=== PATIENT | female | born 1955 | race Caucasian/White ===

== ENCOUNTER 2018-04-17 09:23 | Emergency (ER) | payer BC, OTHER ==
[~2018-04-17] VITALS: Ht 165.1 cm; Wt 81.6 kg
[~2018-04-17 09:23] MED LIST: AMBIEN10 MG PO; AMLODIPINE; LEVOTHYROXINE; LIPITOR20 MG PO; LISINOPRIL; LISINOPRIL-HCT1 EAC3 PO; METOPROLOL; POTASSIUM CHLO20 ME1 PO; PROTONIX IV40 M1 PO; PROTONIX PO; SYNTHROID PO; SYNTHROID200 MCG PO; SYNTHROID25 MCG PO; Z.0.AMBIEN10 MG PO; Z.0.KLOR-CON M2020 M PO; Z.0.METOPROLOL SUCC5 PO; Z.0.NORCO 10-325 T1 PO; Z.0.NORVASC10 MG PO; Z.1.LEVOTHYROXINE100 PO; [UNRECOGNIZED DRUG - OTHER]
[2018-04-17] MEDS ORDERED: KETOROLAC TROMETHAMINE 30 MG/ML VIAL ONE (09:47)
[2018-04-17 09:58] VITALS: BP 142/70
[2018-04-17] MEDS ORDERED: KETOROLAC TROMETHAMINE 60 MG/2 ML VIAL IM ONE (10:30)
== END 2018-04-17 10:01 | disposition home or self-care (01) ==
LOC: ER 09:23
DX: M25.561 Pain in right knee (principal); M25.572 Pain in left ankle and joints of left foot; G89.29 Other chronic pain; I10 Essential (primary) hypertension; E03.9 Hypothyroidism, unspecified; K21.9 Gastro-esophageal reflux disease without esophagitis
CPT/HCPCS: 99282; J1885

== ENCOUNTER 2018-12-26 08:11 | Emergency (ER) | payer OTHER ==
[~2018-12-26] VITALS: Ht 165.1 cm; Wt 81.6 kg
--- OUTSIDE RECORDS SUMMARY | 2018-12-26 08:14 | XMS REPORT | Continuity of Care Document ---
Author Author [facility] Interface Address Unknown Phone Unavailable Problems Problem Status Onset Date Classification Date Reported Comments Source Medications Medication Details Route Status Patient Instructions Ordering Provider Order Date Source Est Estrogenmtest , Active 10/30/2014 [facility] Levothyroxine Sodium (Synthroid) 25 Mcg Tablet, 250 Mcg Oral Daily Active 10/30/2014 [facility] Atorvastatin Calcium (Lipitor) 20 Mg Tablet, 20 Mg Oral Daily Active 10/27/2014 [facility] Hydrocodone Bit/Acetaminophen ([place] 10-325 Tablet) 1 Each Tablet, 10-325 Mg Oral As Needed Active 10/27/2014 [facility] Potassium Chloride (Klor-Con M20) 20 Meq Tab.prt.sr, Oral Twice A Day Active 10/27/2014 [facility] Zolpidem Tartrate (Ambien) 10 Mg Tablet, 10 Mg Oral Bedtime Active 10/27/2014 [facility] Synthroid , 250 Mcg Oral Daily Active 08/31/2014 [facility] Levothyroxine Sodium 100 Mcg Tablet, 100 Mcg Oral Daily Active 02/07/2014 [facility] Pantoprazole Sodium (Protonix Iv) 40 Mg Vial, 40 Mg Oral Daily Active 02/07/2014 [facility] Amlodipine , Daily Active 03/18/2012 [facility] Levothyroxine , Daily Active 03/18/2012 [facility] Lisinopril , Daily Active 03/18/2012 [facility] Metoprolol , Daily Active 03/18/2012 [facility] Amlodipine Besylate (Norvasc) 10 Mg Tablet Daily Active [facility] Atorvastatin Calcium (Lipitor) 20 Mg Tablet Bedtime Active [facility] Levothyroxine Sodium (Synthroid) 200 Mcg Tablet Daily Active [facility] Lisinopril/Hydrochlorothiazide (Lisinopril-Hctz 20-25 Mg Tab) 1 Each Tablet Daily Active [facility] Metoprolol Succinate 50 Mg Tab.sr.24h Twice A Day Active [facility] Potassium Chloride 20 Meq Tab.er.prt Twice A Day Active [facility] Protonix Daily Active [facility] Zolpidem Tartrate (Ambien) 10 Mg Tablet Bedtime Active [facility] Allergies, Adverse Reactions, Alerts Substance Category Reaction Severity Reaction type Status Date Reported Comments Source Codeine AGITATION, VOMITING Intermediate Allergy to Substance Active 12/18/2011 [facility] Immunizations Immunization Date Given Site Status Last Updated Comments Source Results Order Name Results Value Reference Range Date Interpretation Comments Source Vital Signs Vital Sign Value Date Comments Source Encounters Location Location Details Encounter Type Encounter Number Reason For Visit Attending Provider ADM Date DC Date Status Source Departed Emergency Room [id number] DERIAN FRANCISCO MD 04/17/2018 04/17/2018 [facility] Procedures Procedure Code Date Perfomer Comments Source
--- OUTSIDE RECORDS SUMMARY | 2018-12-26 08:15 | XMS REPORT ---
Author [facility] Address Unknown Phone Unavailable Care Team Providers Care Glove Brusher Name Role Phone Unavailable Unavailable Problems This patient has no known problems. Allergies, Adverse Reactions, Alerts This patient has no known allergies or adverse reactions. Medications This patient has no known medications. Encounters Start Date/Time End Date/Time Encounter Type Admission Type Attending [facility] Facility Care Department Encounter ID 2018-01-29 10:17:11 2018-01-29 10:17:11 Emergency [facility] [id number] 2018-01-29 09:24:38 2018-01-29 09:24:38 Emergency [facility] [id number] 2017-09-09 00:00:00 2017-09-09 00:00:00 Outpatient [facility] [id number] 2017-09-04 00:00:00 2017-09-04 00:00:00 Outpatient [facility] [id number] 2017-08-20 00:00:00 2017-08-20 00:00:00 Outpatient [facility] [id number] 2017-08-12 00:00:00 2017-08-12 00:00:00 Outpatient [facility] [id number] 2017-08-06 00:00:00 2017-08-06 00:00:00 Outpatient [facility] [id number] 2017-07-29 00:00:00 2017-07-29 00:00:00 Outpatient [facility] [id number] 2017-07-24 00:00:00 2017-07-24 00:00:00 Outpatient [facility] [id number] 2017-06-30 00:00:00 2017-06-30 00:00:00 Outpatient [facility] [id number] 2017-06-24 00:00:00 2017-06-24 00:00:00 Outpatient [facility] [id number] 2017-06-24 00:00:00 2017-06-24 00:00:00 Outpatient [facility] [id number] 2017-06-17 10:44:50 2017-06-17 10:44:50 Outpatient [facility] [id number] 2017-06-17 09:19:19 2017-06-17 09:19:19 Outpatient [facility] [id number] 2017-06-15 12:57:48 2017-06-15 12:57:48 Outpatient [facility] [id number] 2017-06-08 11:10:25 2017-06-08 11:10:25 Outpatient [facility] [id number] 2017-06-08 09:02:03 2017-06-08 09:02:03 Outpatient [facility] [id number] 2017-06-08 00:00:00 2017-06-08 00:00:00 Outpatient [facility] [id number] 2017 00:00:00 2017 00:00:00 Outpatient [facility] [id number] 2017-04-17 00:00:00 2017-04-17 00:00:00 Outpatient [facility] [id number] 2017-03-05 00:00:00 2017-03-05 00:00:00 Outpatient [facility] [id number] 2017-01-28 09:23:21 2017-01-28 09:23:21 Emergency [facility] [id number]
[2018-12-26] MEDS ORDERED: MORPHINE SULFATE INJ 4 MG/ML INJ 1ML IV ONE (08:30)
[2018-12-26 08:43] LABS: HEMATOCRIT 43.5 % (34.2-44.1); MEAN CORPUSCULAR HEMOGLOBIN 32.2 pg (28-32); MEAN CORPUSCULAR HGB CONC 34.5 g/dL (31-35); MEAN CORPUSCULAR VOLUME 93.3 fL (81-99); PLATELET COUNT 287 x10e3/uL (140-360); RED BLOOD COUNT 4.66 x10e6/uL (3.6-5.1); RED CELL DISTRIBUTION WIDTH 14.3 % (11.7-14.4)
--- NOTE | 2018-12-26 08:52 | NUR ---
NOTIFIED MACHINE LEATHER TRIMMER TO PAGE ULTRASOUND FOR GALLBLADDER ULTRASOUND.
[2018-12-26 08:57] LABS: BILIRUBIN,URINE NEGATIVE (NEGATIVE); KETONES,URINE NEGATIVE (NEGATIVE); LEUKOCYTE ESTERASE ,URINE NEGATIVE (NEGATIVE); NITRITE,URINE NEGATIVE (NEGATIVE); PROTEIN,URINE DIPSTICK TRACE (NEGATIVE); URINE UROBILINOGEN 0.2 mg/dL (0.2 - 1)
[2018-12-26 08:58] LABS: CLARITY,URINE SL CLOUDY (CLEAR); COLOR,URINE YELLOW (YELLOW)
[2018-12-26] MEDS ORDERED: ENALAPRILAT IV INJ 1.25 MG/ML VIAL IV ONE ×2 (09:00→10:30)
--- NOTE | 2018-12-26 09:06 | Diagnostic Imaging Report ---
Exam: Abdominal film Clinical History: Abdominal pain for several months Comparison: CT abdomen and pelvis 03/18/2012 DISCUSSION: Frontal view of the abdomen shows a nonobstructive bowel gas pattern with moderate amount of retained stool.There are no dilated, air-filled loops of bowel. There are no abnormal calcifications.No acute bone abnormality. Multiple pelvic phleboliths. Lung bases are clear. IMPRESSION: 1. Nonobstructive bowel gas pattern with moderate amount of retained stool, which may reflect constipation.. The staff physician below has personally reviewed this exam on the date of dictation. Signed by: Dr. Mario Pastor M.D. on 12/26/2018 9:02 AM
[2018-12-26 09:07] LABS: ALANINE AMINOTRANSFERASE 14 IU/L (0-55); ALBUMIN/GLOBULIN RATIO 1.3 (0.8-2.0); ALKALINE PHOSPHATASE 78 IU/L (40-150); ANION GAP 13.7 mmol/L (8-16); BLOOD UREA NITROGEN 11 mg/dL (7-26); BUN/CREATININE RATIO 14 (6-25); CALCIUM 10.1 mg/dL (8.4-10.2); CARBON DIOXIDE 29 mmol/L (22-29); CHLORIDE 101 mmol/L (98-107); CREATININE, SERUM 0.78 mg/dL (0.57-1.11); EST GLOMERULAR FILTRATION RATE > 60 ML/MIN (60-); GLUCOSE 109 mg/dL (74-118); LIPASE 14 U/L (8-78); POTASSIUM 3.7 mmol/L (3.5-5.1); SODIUM 140 mmol/L (136-145)
[2018-12-26 09:23] LABS: WBC,URINE (MAN) 0-5 /HPF (0-5)
[2018-12-26 09:24] LABS: AMORPHOUS SEDIMENT,URINE FEW (FEW); BACTERIA,URINE FEW /HPF; EPITHELIAL CELLS,URINE MANY /LPF; MUCUS,URINE FEW (RARE)
[2018-12-26] MEDS ORDERED: LACTULOSE SYRUP 20 GM/30 ML UDC PO ONE (09:45)
--- NOTE | 2018-12-26 09:50 | NUR ---
DR. ROMANO AT BEDSIDE UPDATING PATIENTS ON RESULTS
--- NOTE | 2018-12-26 10:21 | Diagnostic Imaging Report ---
EXAM: Right Upper Quadrant Ultrasound INDICATION: ^RUQ Pain COMPARISON: CT abdomen and pelvis 03/18/2012 TECHNIQUE: Transverse and longitudinal images of the right upper abdomen were obtained. FINDINGS: Liver: Size: 15.2 cm in the right midclavicular line, upper limit of normal Appearance: Normal echogenicity, smooth contour Mass: No focal masses Gallbladder: Stones/Sludge: Small amount of sludge noted in the gallbladder lumen. No echogenic stones. Wall: 0.2 cm Appearance: No wall thickening, pericholecystic fluid or hydrops. Sonographic Briceno's Sign: Negative Bile Ducts: Intrahepatic Ducts: No dilatation Extrahepatic Ducts: Common bile duct measures 0.3 cm, no dilatation Pancreas: Visualized portions of the pancreatic neck and proximal body are normal. Kidneys: Length: Right 10.9 cm Echogenicity: Normal Collecting System: No hydronephrosis Stone: None Cyst/Mass: None Vessels: Aorta: Visualized portions are normal Inferior Vena Cava: Visualized portions are normal Main Portal Vein: 0.7 cm, normal size with hepatopetal flow. Free Fluid: No ascites or pleural effusion IMPRESSION: 1. Small amount of sludge in the gallbladder lumen. No sonographic evidence of cholelithiasis or cholecystitis. 2. Liver size in the upper limit of normal. Signed by: Dr. Mario Pastor M.D. on 12/26/2018 10:18 AM
[2018-12-26] MEDS ORDERED: CITRATE OF MAGNESIA 300ML BOTTLE PO ONE (10:30)
[2018-12-26] MEDS ORDERED: LABETALOL HCL 5 MG/ML 20ML VIAL IV ONE (12:00)
[2018-12-26 13:00] LABS: EOSINOPHILS % (MANUAL) 2 % (0-7); LYMPHOCYTES % (MANUAL) 27 % (19-48); MONOCYTES % (MANUAL) 2 % (3.4-9.0); NEUTROPHILS % (MANUAL) 67 % (40-74)
[2018-12-26 13:01] LABS: PLATELET ESTIMATE ADEQUATE; PLATELET MORPHOLOGY COMMENT NORMAL; RBC MORPHOLOGY COMMENT NORMAL
== END 2018-12-26 12:36 | disposition home or self-care (01) ==
LOC: ER 08:11
DX: R10.11 Right upper quadrant pain (principal); R10.12 Left upper quadrant pain; R10.13 Epigastric pain; K59.00 Constipation, unspecified; I10 Essential (primary) hypertension; F17.210 Nicotine dependence, cigarettes, uncomplicated
CPT/HCPCS: 36415; 74019; 76705; 80053; 81001; 83690; 85007; 85027; 99284; J2270; J3490

== ENCOUNTER → 2020-04-13 | Outpatient (CLI) | payer MEDICARE | LOC: MRI 15:09 | PROVIDERS: ATTEND Family Medicine | DX: S46.812A Strain of other muscles, fascia and tendons at shoulder and upper arm level, left arm, initial encounter (principal) | CPT/HCPCS: 72141 ==

== ENCOUNTER 2020-09-22 10:20 | Inpatient (IN) | payer OTHER, MEDICARE ==
[~2020-09-22] VITALS: Ht 165.1 cm; Wt 76.2 kg
[2020-09-22] MEDS ORDERED: SODIUM CHLORIDE 0.9% 1000ML 1,000 ML IV STA (10:39)
[2020-09-22] MEDS ORDERED: MORPHINE SULFATE INJ 2 MG/ML SYR IV STA (10:39)
[2020-09-22] MEDS ORDERED: ONDANSETRON HCL INJ 2MG/ML 2ML 2 MG/ML VIAL IV STA (10:39)
[2020-09-22 11:42] LABS: BASOPHILS # (AUTO) 0.1 (0.0-0.1); BASOPHILS % 0.5 % (0.0-1.0); EOSINOPHILS # (AUTO) 0.2 (0.0-0.4); EOSINOPHILS % 1.1 % (0.0-6.0); HEMATOCRIT 41.2 % (34.2-44.1); HEMOGLOBIN 13.8 g/dL (12.0-16.0); LYMPHOCYTES # (AUTO) 2.4 (1.0-3.2); LYMPHOCYTES % 15.5 % (18.0-39.1); MEAN CORPUSCULAR HEMOGLOBIN 28.9 pg (28-32); MEAN CORPUSCULAR HGB CONC 33.5 g/dL (31-35); MEAN CORPUSCULAR VOLUME 86.4 fL (81-99); MONOCYTES % 6.3 % (4.4-11.3); NEUTROPHILS # (AUTO) 11.6 (2.1-6.9); NEUTROPHILS % 76.1 % (38.7-80.0); PLATELET COUNT 344 x10e3/uL (140-360); RED BLOOD COUNT 4.77 x10e6/uL (3.6-5.1); RED CELL DISTRIBUTION WIDTH 14.8 % (11.7-14.4)
[2020-09-22 11:44] LABS: INR 0.96; PARTIAL THROMBOPLASTIN TIME 35.9 seconds (23.8-35.5); PROTHROMBIN TIME 13.3 seconds (11.9-14.5)
[2020-09-22 11:55] LABS: ALANINE AMINOTRANSFERASE 9 IU/L (0-55); ALBUMIN 3.7 g/dL (3.5-5.0); ALBUMIN/GLOBULIN RATIO 0.9 (0.8-2.0); ALKALINE PHOSPHATASE 104 IU/L (40-150); ANION GAP 17.3 mmol/L (8-16); BLOOD UREA NITROGEN 22 mg/dL (7-26); BUN/CREATININE RATIO 27 (6-25); CALCIUM 8.9 mg/dL (8.4-10.2); CARBON DIOXIDE 21 mmol/L (22-29); CHLORIDE 106 mmol/L (98-107); CREATINE KINASE 49 IU/L (29-168); CREATININE, SERUM 0.82 mg/dL (0.57-1.11); EST GLOMERULAR FILTRATION RATE > 60 ML/MIN (60-); GLUCOSE 129 mg/dL (74-118); LIPASE 10 U/L (8-78); MAGNESIUM 1.7 MG/DL (1.3-2.1); POTASSIUM 3.3 mmol/L (3.5-5.1); SODIUM 141 mmol/L (136-145)
[2020-09-22] MEDS ORDERED: ONDANSETRON HCL INJ 2MG/ML 2ML 2 MG/ML VIAL ONE (12:13)
[2020-09-22] MEDS ORDERED: PROPOFOL IV EMULSION 10 MG/ML 20 ML VIAL ONE (12:13)
[2020-09-22] MEDS ORDERED: PHENYLEPHRINE HCL 1% 10 MG/ML VIAL ONE (12:13)
[2020-09-22] MEDS ORDERED: LIDOCAINE HCL 2% LOCAL INJ 5 ML SDV VIAL INJ ONE (12:13)
[2020-09-22] MEDS ORDERED: SUCCINYLCHOLINE CHLORIDE 20 MG/ML 10ML VIAL ONE (12:13)
[2020-09-22] MEDS ORDERED: EPHEDRINE SULFATE INJ 50 MG/ML VIAL ONE (12:13)
[2020-09-22] MEDS ORDERED: MORPHINE SULFATE INJ 2 MG/ML SYR IV NR (17:00)
[2020-09-22] MEDS ORDERED: ONDANSETRON HCL INJ 2MG/ML 2ML 2 MG/ML VIAL IV NR (17:00)
[2020-09-22] MEDS ORDERED: SODIUM CHLORIDE 0.9% 50ML 50 ML ONE (17:16)
[2020-09-22] MEDS ORDERED: IOPAMIDOL 370 MG/ML 200 ML INFUS..BTL INJ ONE (17:17)
[2020-09-22 19:50] VITALS: BP 150/73
[2020-09-22 20:00] VITALS: BP 150/73
[2020-09-22] MEDS: SODIUM CHLORIDE 0.9% 1000ML 1,000 ML IV SCH (20:00)
[2020-09-22] MEDS ORDERED: CLONAZEPAM0.5 MG PO (20:25)
[2020-09-22] MEDS ORDERED: FLUOXETINE HCL20 MG PO (20:25)
[2020-09-22] MEDS ORDERED: NIFEDIPINE ER30 M1 PO (20:25)
[2020-09-22] MEDS ORDERED: LYRICA50 MG PO (20:28)
[2020-09-22] MEDS ORDERED: CLOPIDOGREL75 MG PO (20:28)
[2020-09-22 20:35] LABS: CREATINE KINASE MB 0.4 ng/mL (0-5.0)
[2020-09-22] MEDS: ONDANSETRON HCL INJ 2MG/ML 2ML 2 MG/ML VIAL IV PRN (21:48)
[2020-09-22] MEDS: MORPHINE SULFATE INJ 4 MG/ML INJ 1ML IV PRN (21:48)
[2020-09-23] VITALS (7 sets, daily range): BP systolic 132–191; BP diastolic 63–83
[2020-09-23] MEDS: ONDANSETRON HCL INJ 2MG/ML 2ML 2 MG/ML VIAL IV PRN ×4 (03:12→22:24)
[2020-09-23] MEDS: MORPHINE SULFATE INJ 4 MG/ML INJ 1ML IV PRN ×4 (03:13→17:10)
[2020-09-23 06:01] LABS: BASOPHILS # (AUTO) 0.1 (0.0-0.1); BASOPHILS % 0.5 % (0.0-1.0); EOSINOPHILS # (AUTO) 0.2 (0.0-0.4); EOSINOPHILS % 1.5 % (0.0-6.0); HEMATOCRIT 38.6 % (34.2-44.1); HEMOGLOBIN 12.8 g/dL (12.0-16.0); LYMPHOCYTES # (AUTO) 1.7 (1.0-3.2); LYMPHOCYTES % 11.5 % (18.0-39.1); MEAN CORPUSCULAR HEMOGLOBIN 29.4 pg (28-32); MEAN CORPUSCULAR HGB CONC 33.2 g/dL (31-35); MEAN CORPUSCULAR VOLUME 88.7 fL (81-99); MONOCYTES # (AUTO) 0.8 (0.2-0.8); MONOCYTES % 5.7 % (4.4-11.3); NEUTROPHILS # (AUTO) 11.5 (2.1-6.9); NEUTROPHILS % 80.4 % (38.7-80.0); PLATELET COUNT 309 x10e3/uL (140-360); RED BLOOD COUNT 4.35 x10e6/uL (3.6-5.1); RED CELL DISTRIBUTION WIDTH 14.8 % (11.7-14.4)
[2020-09-23] MEDS: SODIUM CHLORIDE 0.9% 1000ML 1,000 ML IV SCH ×2 (06:20→19:27)
[2020-09-23 06:52] LABS: ALANINE AMINOTRANSFERASE 10 IU/L (0-55); ALBUMIN 3.4 g/dL (3.5-5.0); ALKALINE PHOSPHATASE 100 IU/L (40-150); ANION GAP 13.6 mmol/L (8-16); BLOOD UREA NITROGEN 15 mg/dL (7-26); BUN/CREATININE RATIO 21 (6-25); CALCIUM 8.5 mg/dL (8.4-10.2); CARBON DIOXIDE 22 mmol/L (22-29); CHLORIDE 107 mmol/L (98-107); CREATININE, SERUM 0.72 mg/dL (0.57-1.11); EST GLOMERULAR FILTRATION RATE > 60 ML/MIN (60-); GLUCOSE 105 mg/dL (74-118); POTASSIUM 3.6 mmol/L (3.5-5.1); SODIUM 139 mmol/L (136-145)
[2020-09-23 07:17] LABS: CREATINE KINASE 35 IU/L (29-168)
[2020-09-23] MEDS ORDERED: NIFEDIPINE CR 30 MG TAB PO ONE (20:30)
[2020-09-23] MEDS ORDERED: HYDROCHLOROTHIAZIDE 25 MG TAB PO ONE (20:30)
[2020-09-23] MEDS ORDERED: PREGABALIN 50 MG CAP PO ONE (20:30)
[2020-09-23] MEDS ORDERED: LISINOPRIL 20 MG TAB PO ONE (20:30)
[2020-09-23] MEDS: CLONAZEPAM 0.5 MG TAB PO SCH (21:00)
[2020-09-23] MEDS: MORPHINE SULFATE INJ 2 MG/ML SYR IV PRN (22:23)
[2020-09-24] VITALS (8 sets, daily range): BP systolic 111–168; BP diastolic 60–83
[2020-09-24] MEDS: MORPHINE SULFATE INJ 2 MG/ML SYR IV PRN ×4 (02:43→15:30)
[2020-09-24] MEDS: ONDANSETRON HCL INJ 2MG/ML 2ML 2 MG/ML VIAL IV PRN ×6 (02:43→23:07)
[2020-09-24] MEDS: SODIUM CHLORIDE 0.9% 1000ML 1,000 ML IV SCH ×2 (07:47→21:16)
[2020-09-24] MEDS: PANTOPRAZOLE SOD 40 MG TABEC PO SCH (11:30)
[2020-09-24] MEDS: HYDROCHLOROTHIAZIDE 25 MG TAB PO SCH (11:31)
[2020-09-24] MEDS: LISINOPRIL 20 MG TAB PO SCH (11:35)
[2020-09-24] MEDS: CLOPIDOGREL BISULFATE 75 MG TAB PO SCH (11:35)
[2020-09-24] MEDS: PREGABALIN 50 MG CAP PO SCH (11:35)
[2020-09-24] MEDS: NIFEDIPINE CR 30 MG TAB PO SCH (11:36)
[2020-09-24] MEDS: FLUOXETINE HCL 20 MG CAP PO SCH (11:36)
[2020-09-24] MEDS: MORPHINE SULFATE INJ 4 MG/ML INJ 1ML IV PRN ×2 (19:07→23:07)
[2020-09-24] MEDS: CLONAZEPAM 0.5 MG TAB PO SCH (21:19)
[2020-09-25] VITALS (8 sets, daily range): BP systolic 119–138; BP diastolic 63–84
[2020-09-25] MEDS: MORPHINE SULFATE INJ 4 MG/ML INJ 1ML IV PRN ×5 (03:07→20:43)
[2020-09-25] MEDS: ONDANSETRON HCL INJ 2MG/ML 2ML 2 MG/ML VIAL IV PRN ×5 (03:07→20:43)
[2020-09-25 08:10] LABS: CLARITY,URINE CLEAR (CLEAR); COLOR,URINE YELLOW (YELLOW); KETONES,URINE 2+ (NEGATIVE); LEUKOCYTE ESTERASE ,URINE NEGATIVE (NEGATIVE); NITRITE,URINE NEGATIVE (NEGATIVE); PROTEIN,URINE DIPSTICK NEGATIVE (NEGATIVE); URINE UROBILINOGEN 0.2 mg/dL (0.2 - 1)
[2020-09-25 08:18] LABS: BACTERIA,URINE MODERATE /HPF; EPITHELIAL CELLS,URINE FEW /LPF; WBC,URINE (MAN) 0-5 /HPF (0-5)
[2020-09-25] MEDS: SODIUM CHLORIDE 0.9% 1000ML 1,000 ML IV SCH (11:04)
[2020-09-25] MEDS: PANTOPRAZOLE SOD 40 MG TABEC PO SCH (11:12)
[2020-09-25] MEDS: HYDROCHLOROTHIAZIDE 25 MG TAB PO SCH (11:12)
[2020-09-25] MEDS: CLOPIDOGREL BISULFATE 75 MG TAB PO SCH (11:13)
[2020-09-25] MEDS: PREGABALIN 50 MG CAP PO SCH (11:13)
[2020-09-25] MEDS: FLUOXETINE HCL 20 MG CAP PO SCH (11:14)
[2020-09-25] MEDS: LISINOPRIL 20 MG TAB PO SCH (11:14)
[2020-09-25] MEDS: NIFEDIPINE CR 30 MG TAB PO SCH (11:19)
[2020-09-25] MEDS: CLONAZEPAM 0.5 MG TAB PO SCH (20:43)
[2020-09-26] VITALS (8 sets, daily range): BP systolic 101–122; BP diastolic 47–66
[2020-09-26] MEDS: MORPHINE SULFATE INJ 4 MG/ML INJ 1ML IV PRN ×6 (00:43→21:37)
[2020-09-26] MEDS: ONDANSETRON HCL INJ 2MG/ML 2ML 2 MG/ML VIAL IV PRN ×6 (00:43→21:37)
[2020-09-26] MEDS: SODIUM CHLORIDE 0.9% 1000ML 1,000 ML IV SCH ×3 (03:27→15:19)
[2020-09-26] MEDS: PANTOPRAZOLE SOD 40 MG TABEC PO SCH (08:41)
[2020-09-26] MEDS: PREGABALIN 50 MG CAP PO SCH (08:41)
[2020-09-26] MEDS: FLUOXETINE HCL 20 MG CAP PO SCH (08:42)
[2020-09-26] MEDS: LISINOPRIL 20 MG TAB PO SCH (08:43)
[2020-09-26] MEDS: CLOPIDOGREL BISULFATE 75 MG TAB PO SCH (08:43)
[2020-09-26] MEDS: HYDROCHLOROTHIAZIDE 25 MG TAB PO SCH (08:43)
[2020-09-26] MEDS: NIFEDIPINE CR 30 MG TAB PO SCH (08:44)
[2020-09-26] MEDS: ZOLPIDEM TARTRATE 10 MG TAB PO PRN (21:29)
[2020-09-26] MEDS: CLONAZEPAM 0.5 MG TAB PO SCH (21:29)
[2020-09-27] VITALS (9 sets, daily range): BP systolic 105–130; BP diastolic 57–73
[2020-09-27] MEDS: SODIUM CHLORIDE 0.9% 1000ML 1,000 ML IV SCH ×2 (03:40→17:16)
[2020-09-27] MEDS: MORPHINE SULFATE INJ 4 MG/ML INJ 1ML IV PRN ×4 (06:00→23:15)
[2020-09-27 07:07] LABS: CLARITY,URINE CLOUDY (CLEAR); COLOR,URINE YELLOW (YELLOW)
[2020-09-27 07:08] LABS: KETONES,URINE 2+ (NEGATIVE); LEUKOCYTE ESTERASE ,URINE NEGATIVE (NEGATIVE); NITRITE,URINE NEGATIVE (NEGATIVE); PROTEIN,URINE DIPSTICK 1+ (NEGATIVE)
[2020-09-27 07:30] LABS: BACTERIA,URINE FEW /HPF; EPITHELIAL CELLS,URINE RARE /LPF; WBC,URINE (MAN) 0-5 /HPF (0-5)
[2020-09-27 07:31] LABS: AMORPHOUS SEDIMENT,URINE MANY (FEW)
[2020-09-27] MEDS: HYDROCHLOROTHIAZIDE 25 MG TAB PO SCH (08:43)
[2020-09-27] MEDS: PREGABALIN 50 MG CAP PO SCH (08:43)
[2020-09-27] MEDS: PANTOPRAZOLE SOD 40 MG TABEC PO SCH (08:43)
[2020-09-27] MEDS: LISINOPRIL 20 MG TAB PO SCH (08:44)
[2020-09-27] MEDS: FLUOXETINE HCL 20 MG CAP PO SCH (08:44)
[2020-09-27] MEDS: NIFEDIPINE CR 30 MG TAB PO SCH (08:44)
[2020-09-27] MEDS: ONDANSETRON HCL INJ 2MG/ML 2ML 2 MG/ML VIAL IV PRN ×2 (15:14→19:20)
[2020-09-27] MEDS: ZOLPIDEM TARTRATE 10 MG TAB PO PRN (19:19)
[2020-09-27] MEDS: CLONAZEPAM 0.5 MG TAB PO SCH (19:19)
[2020-09-28] VITALS (8 sets, daily range): BP systolic 96–121; BP diastolic 50–59
[2020-09-28] MEDS: ONDANSETRON HCL INJ 2MG/ML 2ML 2 MG/ML VIAL IV PRN ×4 (04:10→22:24)
[2020-09-28] MEDS: MORPHINE SULFATE INJ 4 MG/ML INJ 1ML IV PRN ×5 (04:10→22:24)
[2020-09-28] MEDS: SODIUM CHLORIDE 0.9% 1000ML 1,000 ML IV SCH ×2 (04:38→22:45)
[2020-09-28] MEDS: HYDROCHLOROTHIAZIDE 25 MG TAB PO SCH (08:31)
[2020-09-28] MEDS: PREGABALIN 50 MG CAP PO SCH (08:31)
[2020-09-28] MEDS: NIFEDIPINE CR 30 MG TAB PO SCH (08:32)
[2020-09-28] MEDS: LISINOPRIL 20 MG TAB PO SCH (08:32)
[2020-09-28] MEDS: FLUOXETINE HCL 20 MG CAP PO SCH (08:32)
[2020-09-28] MEDS: PANTOPRAZOLE SOD 40 MG TABEC PO SCH (08:36)
[2020-09-28] MEDS: HYDROCODONE/APAP 5MG-325MG TAB PO PRN ×3 (09:14→21:18)
[2020-09-29] VITALS (7 sets, daily range): BP systolic 104–123; BP diastolic 54–79
[2020-09-29] MEDS: CLONAZEPAM 0.5 MG TAB PO SCH ×2 (00:32→23:40)
[2020-09-29] MEDS: ONDANSETRON HCL INJ 2MG/ML 2ML 2 MG/ML VIAL IV PRN ×5 (03:29→21:23)
[2020-09-29] MEDS: LISINOPRIL 20 MG TAB PO SCH (08:41)
[2020-09-29] MEDS: HYDROCHLOROTHIAZIDE 25 MG TAB PO SCH (08:41)
[2020-09-29] MEDS: FLUOXETINE HCL 20 MG CAP PO SCH (08:41)
[2020-09-29] MEDS: PANTOPRAZOLE SOD 40 MG TABEC PO SCH (08:41)
[2020-09-29] MEDS: NIFEDIPINE CR 30 MG TAB PO SCH (08:41)
[2020-09-29] MEDS: PREGABALIN 50 MG CAP PO SCH (08:41)
[2020-09-29] MEDS: MORPHINE SULFATE INJ 4 MG/ML INJ 1ML IV PRN ×4 (08:51→21:23)
[2020-09-29] MEDS: HYDROCODONE/APAP 5MG-325MG TAB PO PRN ×2 (11:17→19:04)
[2020-09-29] MEDS: SODIUM CHLORIDE 0.9% 1000ML 1,000 ML IV SCH (12:57)
[2020-09-29 13:20] LABS: BASOPHILS # (AUTO) 0.1 (0.0-0.1); BASOPHILS % 0.4 % (0.0-1.0); EOSINOPHILS # (AUTO) 0.2 (0.0-0.4); EOSINOPHILS % 1.9 % (0.0-6.0); HEMATOCRIT 35.9 % (34.2-44.1); HEMOGLOBIN 11.6 g/dL (12.0-16.0); LYMPHOCYTES # (AUTO) 1.9 (1.0-3.2); LYMPHOCYTES % 15.4 % (18.0-39.1); MEAN CORPUSCULAR HEMOGLOBIN 28.6 pg (28-32); MEAN CORPUSCULAR HGB CONC 32.3 g/dL (31-35); MEAN CORPUSCULAR VOLUME 88.6 fL (81-99); MONOCYTES # (AUTO) 0.9 (0.2-0.8); MONOCYTES % 7.5 % (4.4-11.3); NEUTROPHILS # (AUTO) 9.4 (2.1-6.9); NEUTROPHILS % 74.4 % (38.7-80.0); PLATELET COUNT 394 x10e3/uL (140-360); RED BLOOD COUNT 4.05 x10e6/uL (3.6-5.1); RED CELL DISTRIBUTION WIDTH 14.1 % (11.7-14.4)
[2020-09-30] VITALS: BP 105/58
[2020-09-30] MEDS: MORPHINE SULFATE INJ 4 MG/ML INJ 1ML IV PRN ×5 (01:25→20:37)
[2020-09-30] MEDS: ONDANSETRON HCL INJ 2MG/ML 2ML 2 MG/ML VIAL IV PRN ×5 (01:25→20:38)
[2020-09-30] MEDS: SODIUM CHLORIDE 0.9% 1000ML 1,000 ML IV SCH ×2 (01:26→11:57)
[2020-09-30 04:00] VITALS: BP 123/67
[2020-09-30 08:20] VITALS: BP 98/53
[2020-09-30] MEDS: PANTOPRAZOLE SOD 40 MG TABEC PO SCH (08:20)
[2020-09-30] MEDS: PREGABALIN 50 MG CAP PO SCH (08:20)
[2020-09-30] MEDS: HYDROCHLOROTHIAZIDE 25 MG TAB PO SCH (08:20)
[2020-09-30] MEDS: FLUOXETINE HCL 20 MG CAP PO SCH (08:20)
[2020-09-30] MEDS: LISINOPRIL 20 MG TAB PO SCH (08:20)
[2020-09-30] MEDS: NIFEDIPINE CR 30 MG TAB PO SCH (08:20)
[2020-09-30] MEDS: HYDROCODONE/APAP 5MG-325MG TAB PO PRN ×3 (08:21→23:30)
[2020-09-30 16:01] VITALS: BP 92/52
[2020-09-30] MEDS: DOCUSATE SODIUM 100 MG CAP PO SCH (16:39)
[2020-09-30] MEDS: LUBIPROSTONE 24 MCG CAP PO SCH (17:35)
[2020-09-30 20:00] VITALS: BP 110/59
[2020-09-30 21:28] VITALS: BP 110/59
[2020-10-01] VITALS (9 sets, daily range): BP systolic 109–136; BP diastolic 53–72
[2020-10-01] MEDS: SODIUM CHLORIDE 0.9% 1000ML 1,000 ML IV SCH ×2 (01:00→15:13)
[2020-10-01] MEDS: ONDANSETRON HCL INJ 2MG/ML 2ML 2 MG/ML VIAL IV PRN ×4 (02:17→17:20)
[2020-10-01] MEDS: MORPHINE SULFATE INJ 4 MG/ML INJ 1ML IV PRN ×4 (02:17→17:20)
[2020-10-01] MEDS: HYDROCODONE/APAP 5MG-325MG TAB PO PRN ×3 (05:36→21:51)
[2020-10-01] MEDS: DOCUSATE SODIUM 100 MG CAP PO SCH ×2 (08:39→17:28)
[2020-10-01] MEDS: NIFEDIPINE CR 30 MG TAB PO SCH (08:39)
[2020-10-01] MEDS: PANTOPRAZOLE SOD 40 MG TABEC PO SCH (08:39)
[2020-10-01] MEDS: LISINOPRIL 20 MG TAB PO SCH (08:39)
[2020-10-01] MEDS: FLUOXETINE HCL 20 MG CAP PO SCH (08:39)
[2020-10-01] MEDS: HYDROCHLOROTHIAZIDE 25 MG TAB PO SCH (08:39)
[2020-10-01] MEDS: LUBIPROSTONE 24 MCG CAP PO SCH ×2 (08:39→17:28)
[2020-10-02] MEDS: SODIUM CHLORIDE 0.9% 1000ML 1,000 ML IV SCH ×2 (00:17→18:40)
[2020-10-02] MEDS: MORPHINE SULFATE INJ 4 MG/ML INJ 1ML IV PRN ×5 (00:18→22:33)
[2020-10-02 04:00] VITALS: BP 134/67
[2020-10-02] MEDS: PANTOPRAZOLE SOD 40 MG TABEC PO SCH (07:30)
[2020-10-02 08:38] VITALS: BP 134/62
[2020-10-02] MEDS: LUBIPROSTONE 24 MCG CAP PO SCH ×2 (09:00→17:00)
[2020-10-02] MEDS: DOCUSATE SODIUM 100 MG CAP PO SCH ×2 (09:12→17:00)
[2020-10-02] MEDS: HYDROCHLOROTHIAZIDE 25 MG TAB PO SCH (09:12)
[2020-10-02] MEDS: LISINOPRIL 20 MG TAB PO SCH (09:13)
[2020-10-02] MEDS: NIFEDIPINE CR 30 MG TAB PO SCH (09:13)
[2020-10-02] MEDS: FLUOXETINE HCL 20 MG CAP PO SCH (09:13)
[2020-10-02] MEDS ORDERED: SODIUM CHLORIDE 0.9% 250ML 250 ML ONE (10:18)
[2020-10-02] MEDS ORDERED: LIDOCAINE HCL 1% LOCAL INJ 20 ML VIAL ONE (10:18)
[2020-10-02] MEDS ORDERED: CLINDAMYCIN PHOS 900MG/ 50ML 50 ML IV ONE (11:19)
[2020-10-02] MEDS ORDERED: FENTANYL CITRATE/PF 100MCG/2 ML INJ ONE (12:12)
[2020-10-02 13:43] VITALS: BP 117/58
[2020-10-02] MEDS: ONDANSETRON HCL INJ 2MG/ML 2ML 2 MG/ML VIAL IV PRN ×2 (14:20→18:20)
[2020-10-02] MEDS: HYDROCODONE/APAP 5MG-325MG TAB PO PRN (16:02)
[2020-10-02 19:00] VITALS: BP 122/63
[2020-10-02 20:00] VITALS: BP 122/63
[2020-10-03] VITALS (8 sets, daily range): BP systolic 100–122; BP diastolic 52–86
[2020-10-03] MEDS: HYDROCODONE/APAP 5MG-325MG TAB PO PRN ×3 (02:43→17:44)
[2020-10-03] MEDS: SODIUM CHLORIDE 0.9% 1000ML 1,000 ML IV SCH ×2 (04:24→08:41)
[2020-10-03] MEDS: MORPHINE SULFATE INJ 4 MG/ML INJ 1ML IV PRN ×5 (04:24→23:39)
[2020-10-03] MEDS: PANTOPRAZOLE SOD 40 MG TABEC PO SCH (07:30)
[2020-10-03] MEDS: HYDROCHLOROTHIAZIDE 25 MG TAB PO SCH (08:52)
[2020-10-03] MEDS: LUBIPROSTONE 24 MCG CAP PO SCH ×2 (08:52→16:15)
[2020-10-03] MEDS: DOCUSATE SODIUM 100 MG CAP PO SCH ×2 (08:52→16:15)
[2020-10-03] MEDS: ONDANSETRON HCL INJ 2MG/ML 2ML 2 MG/ML VIAL IV PRN ×3 (08:53→20:15)
[2020-10-03] MEDS: LISINOPRIL 20 MG TAB PO SCH (08:53)
[2020-10-03] MEDS: NIFEDIPINE CR 30 MG TAB PO SCH (08:53)
[2020-10-03] MEDS: FLUOXETINE HCL 20 MG CAP PO SCH (08:53)
[2020-10-04] VITALS (8 sets, daily range): BP systolic 122–143; BP diastolic 56–78
[2020-10-04] MEDS: SODIUM CHLORIDE 0.9% 1000ML 1,000 ML IV SCH ×2 (02:15→11:30)
[2020-10-04] MEDS: MORPHINE SULFATE INJ 4 MG/ML INJ 1ML IV PRN ×4 (03:55→22:52)
[2020-10-04] MEDS: ONDANSETRON HCL INJ 2MG/ML 2ML 2 MG/ML VIAL IV PRN ×3 (03:55→18:45)
[2020-10-04 05:13] LABS: BASOPHILS # (AUTO) 0.1 (0.0-0.1); BASOPHILS % 0.7 % (0.0-1.0); EOSINOPHILS # (AUTO) 0.4 (0.0-0.4); EOSINOPHILS % 4.2 % (0.0-6.0); HEMATOCRIT 32.6 % (34.2-44.1); HEMOGLOBIN 10.6 g/dL (12.0-16.0); LYMPHOCYTES # (AUTO) 1.7 (1.0-3.2); LYMPHOCYTES % 18.5 % (18.0-39.1); MEAN CORPUSCULAR HEMOGLOBIN 28.5 pg (28-32); MEAN CORPUSCULAR HGB CONC 32.5 g/dL (31-35); MEAN CORPUSCULAR VOLUME 87.6 fL (81-99); MONOCYTES # (AUTO) 0.8 (0.2-0.8); MONOCYTES % 8.8 % (4.4-11.3); NEUTROPHILS # (AUTO) 6.3 (2.1-6.9); NEUTROPHILS % 67.3 % (38.7-80.0); PLATELET COUNT 473 x10e3/uL (140-360); RED BLOOD COUNT 3.72 x10e6/uL (3.6-5.1); RED CELL DISTRIBUTION WIDTH 13.9 % (11.7-14.4)
[2020-10-04 05:28] LABS: ANION GAP 12.1 mmol/L (8-16); BLOOD UREA NITROGEN 7 mg/dL (7-26); BUN/CREATININE RATIO 12 (6-25); CARBON DIOXIDE 31 mmol/L (22-29); CHLORIDE 99 mmol/L (98-107); CREATININE, SERUM 0.59 mg/dL (0.57-1.11); EST GLOMERULAR FILTRATION RATE > 60 ML/MIN (60-); GLUCOSE 96 mg/dL (74-118); POTASSIUM 3.1 mmol/L (3.5-5.1); SODIUM 139 mmol/L (136-145)
[2020-10-04] MEDS: PANTOPRAZOLE SOD 40 MG TABEC PO SCH (08:45)
[2020-10-04] MEDS: FLUOXETINE HCL 20 MG CAP PO SCH (09:00)
[2020-10-04] MEDS: LISINOPRIL 20 MG TAB PO SCH (09:00)
[2020-10-04] MEDS: LUBIPROSTONE 24 MCG CAP PO SCH ×2 (09:00→17:00)
[2020-10-04] MEDS: NIFEDIPINE CR 30 MG TAB PO SCH (09:00)
[2020-10-04] MEDS: HYDROCHLOROTHIAZIDE 25 MG TAB PO SCH (09:00)
[2020-10-04] MEDS: DOCUSATE SODIUM 100 MG CAP PO SCH ×2 (09:03→17:00)
[2020-10-04] MEDS ORDERED: POTASSIUM CHLORIDE 20 MEQ TAB CR PO ONE (10:30)
[2020-10-04] MEDS: HYDROCODONE/APAP 5MG-325MG TAB PO PRN (16:27)
[2020-10-05 00:47] VITALS: BP_SYST 129; BP_SYST 98; BP_DIAS 55; BP_DIAS 56
[2020-10-05 05:22] VITALS: BP 129/68
[2020-10-05] MEDS: MORPHINE SULFATE INJ 4 MG/ML INJ 1ML IV PRN ×2 (05:41→10:03)
[2020-10-05 05:49] LABS: BASOPHILS # (AUTO) 0.1 (0.0-0.1); BASOPHILS % 0.6 % (0.0-1.0); EOSINOPHILS # (AUTO) 0.4 (0.0-0.4); EOSINOPHILS % 4.1 % (0.0-6.0); HEMATOCRIT 32.6 % (34.2-44.1); HEMOGLOBIN 10.7 g/dL (12.0-16.0); LYMPHOCYTES % 19.6 % (18.0-39.1); MEAN CORPUSCULAR HEMOGLOBIN 28.6 pg (28-32); MEAN CORPUSCULAR HGB CONC 32.8 g/dL (31-35); MEAN CORPUSCULAR VOLUME 87.2 fL (81-99); MONOCYTES # (AUTO) 0.9 (0.2-0.8); MONOCYTES % 9.1 % (4.4-11.3); NEUTROPHILS # (AUTO) 6.7 (2.1-6.9); PLATELET COUNT 494 x10e3/uL (140-360); RED BLOOD COUNT 3.74 x10e6/uL (3.6-5.1)
[2020-10-05 06:26] LABS: ANION GAP 12.2 mmol/L (8-16); BLOOD UREA NITROGEN 8 mg/dL (7-26); BUN/CREATININE RATIO 14 (6-25); CARBON DIOXIDE 29 mmol/L (22-29); CHLORIDE 102 mmol/L (98-107); CREATININE, SERUM 0.59 mg/dL (0.57-1.11); EST GLOMERULAR FILTRATION RATE > 60 ML/MIN (60-); GLUCOSE 95 mg/dL (74-118); POTASSIUM 3.2 mmol/L (3.5-5.1); SODIUM 140 mmol/L (136-145)
[2020-10-05 07:51] VITALS: BP 140/67
[2020-10-05] MEDS: PANTOPRAZOLE SOD 40 MG TABEC PO SCH (08:04)
[2020-10-05] MEDS: LUBIPROSTONE 24 MCG CAP PO SCH (08:04)
[2020-10-05] MEDS: DOCUSATE SODIUM 100 MG CAP PO SCH (08:04)
[2020-10-05] MEDS: HYDROCHLOROTHIAZIDE 25 MG TAB PO SCH (08:04)
[2020-10-05] MEDS: FLUOXETINE HCL 20 MG CAP PO SCH (08:05)
[2020-10-05] MEDS: LISINOPRIL 20 MG TAB PO SCH (08:05)
[2020-10-05] MEDS: NIFEDIPINE CR 30 MG TAB PO SCH (08:05)
[2020-10-05 08:50] VITALS: BP 140/67
[2020-10-05] MEDS: ONDANSETRON HCL INJ 2MG/ML 2ML 2 MG/ML VIAL IV PRN (10:02)
[2020-10-05 11:39] VITALS: BP 129/58
[2020-10-05] MEDS ORDERED: POTASSIUM CHLORIDE 20 MEQ TAB CR PO ONE (12:45)
== END 2020-10-05 13:12 | disposition home health service (06) | DRG 516 ==
LOC: ER 10:45 → ERHOLD 16:56 → MED/SURG 18:40 → IMCU 10-01 14:54
PROC: XNU4356 Supplement Thoracic Vertebra with Mechanically Expandable (Paired) Synthetic Substitute, Percutaneous Approach, New Technology Group 6 (ICD-10-PCS; 2020-10-02)
PROC: XNU0356 Supplement Lumbar Vertebra with Mechanically Expandable (Paired) Synthetic Substitute, Percutaneous Approach, New Technology Group 6 (ICD-10-PCS; principal; 2020-10-02 11:00)
DX: M80.88XA Other osteoporosis with current pathological fracture, vertebra(e), initial encounter for fracture (principal); I69.351 Hemiplegia and hemiparesis following cerebral infarction affecting right dominant side; I10 Essential (primary) hypertension; E03.9 Hypothyroidism, unspecified; K21.9 Gastro-esophageal reflux disease without esophagitis; S50.311A Abrasion of right elbow, initial encounter; W01.0XXA Fall on same level from slipping, tripping and stumbling without subsequent striking against object, initial encounter; Z20.822 Contact with and (suspected) exposure to COVID-19
CPT/HCPCS: 22513; 22514; 36415; 70450; 71260; 72125; 72146; 72148; 74177; 74470; 80048; 80053; 81001; 82550; 82553; 83690; 83735; 83880; 84484; 85025; 85610; 85730; 87086; 93005; 97139; 99251; 99284; J0330; J2001; J2270; J2370; J2405; J3010; J7030; J7050; Q9967; U0002

== ENCOUNTER → 2021-04-24 | Day surgery (SDC) | payer MEDICARE ==
[2021-04-22 14:24] LABS: BASOPHILS # (AUTO) 0.1 (0.0-0.1); BASOPHILS % 0.6 % (0.0-1.0); EOSINOPHILS # (AUTO) 0.2 (0.0-0.4); EOSINOPHILS % 1.4 % (0.0-6.0); HEMATOCRIT 40.5 % (34.2-44.1); HEMOGLOBIN 13.2 g/dL (12.0-16.0); LYMPHOCYTES # (AUTO) 4.9 (1.0-3.2); LYMPHOCYTES % 35.5 % (18.0-39.1); MEAN CORPUSCULAR HGB CONC 32.6 g/dL (31-35); MONOCYTES # (AUTO) 0.9 (0.2-0.8); MONOCYTES % 6.7 % (4.4-11.3); NEUTROPHILS # (AUTO) 7.7 (2.1-6.9); NEUTROPHILS % 55.4 % (38.7-80.0); PLATELET COUNT 365 x10e3/uL (140-360); RED BLOOD COUNT 4.55 x10e6/uL (3.6-5.1); RED CELL DISTRIBUTION WIDTH 14.8 % (11.7-14.4)
[2021-04-22 18:38] LABS: EOSINOPHILS % (MANUAL) 2 % (0-7); LYMPHOCYTES % (MANUAL) 31 % (19-48); MONOCYTES % (MANUAL) 4 % (3.4-9.0); NEUTROPHILS % (MANUAL) 61 % (40-74); PLATELET ESTIMATE ADEQUATE; PLATELET MORPHOLOGY COMMENT NORMAL; RBC MORPHOLOGY COMMENT NORMAL
[~2021-04-24] MED LIST changes: +CLONAZEPAM0.5 MG PO; +CLOPIDOGREL75 MG PO; +FENTANYL CITRATE/PF 100MCG/2 ML INJ ONE; +FLUOXETINE HCL20 MG PO; +FLUOXETINE HCL40 MG; +LYRICA50 MG PO; +MIDAZOLAM HCL 2 MG/2 ML VIAL ONE; +NIFEDIPINE ER30 M1 PO; +PLAVIX75 MG PO
[2021-04-24 12:48] VITALS: BP 134/76
== END | disposition home or self-care (01) ==
LOC: OR 08:40
PROVIDERS: ATTEND Internal Medicine Gastroenterology
DX: K29.60 Other gastritis without bleeding (principal); D12.5 Benign neoplasm of sigmoid colon; K20.90 Esophagitis, unspecified without bleeding; K21.9 Gastro-esophageal reflux disease without esophagitis; I69.331 Monoplegia of upper limb following cerebral infarction affecting right dominant side; E03.9 Hypothyroidism, unspecified; I65.29 Occlusion and stenosis of unspecified carotid artery; I10 Essential (primary) hypertension; F41.9 Anxiety disorder, unspecified; Z01.810 Encounter for preprocedural cardiovascular examination; Z01.812 Encounter for preprocedural laboratory examination; Z20.822 Contact with and (suspected) exposure to COVID-19; Z79.02 Long term (current) use of antithrombotics/antiplatelets; Z68.27 Body mass index [BMI] 27.0-27.9, adult
CPT/HCPCS: 36415; 43239; 43450; 45385; 85025; 93005; C9113; J2250; J3010; U0002

== ENCOUNTER 2021-09-05 10:07 | Emergency (ER) | payer MEDICARE, OTHER ==
[~2021-09-05] VITALS: Ht 165.1 cm; Wt 76.2 kg
[~2021-09-05 10:07] MED LIST changes: -FENTANYL CITRATE/PF 100MCG/2 ML INJ ONE; -MIDAZOLAM HCL 2 MG/2 ML VIAL ONE
[2021-09-05] MEDS ORDERED: HYDROMORPHONE 1MG/1ML INJ IM STA (10:23)
[2021-09-05] MEDS ORDERED: HYDROCODON-ACE1 EA11 PO (13:20)
== END 2021-09-05 13:28 | disposition home or self-care (01) ==
LOC: ER 10:19
DX: M54.50 Low back pain, unspecified (principal); W01.0XXA Fall on same level from slipping, tripping and stumbling without subsequent striking against object, initial encounter; Y92.008 Other place in unspecified non-institutional (private) residence as the place of occurrence of the external cause; I10 Essential (primary) hypertension; E03.9 Hypothyroidism, unspecified; B19.20 Unspecified viral hepatitis C without hepatic coma; K21.9 Gastro-esophageal reflux disease without esophagitis; G47.00 Insomnia, unspecified; I69.351 Hemiplegia and hemiparesis following cerebral infarction affecting right dominant side; F17.210 Nicotine dependence, cigarettes, uncomplicated
CPT/HCPCS: 70450; 72125; 72131; 99284; J1170

== ENCOUNTER → 2022-04-18 | Outpatient (CLI) | payer MEDICARE ==
[~2022-04-18] MED LIST changes: +DIATRIZOATE MEGL/DIATRIZOA SOD 30 ML BTL PO ONE; +HYDROCODON-ACE1 EA11 PO; +IOPAMIDOL 370 MG/ML 100 ML INFUS..BTL INJ ONE
[2022-04-18 14:10] LABS: CREATININE, SERUM 0.73 mg/dL (0.57-1.11)
== END ==
LOC: CT 13:19
PROVIDERS: ATTEND Surgery
DX: R19.09 Other intra-abdominal and pelvic swelling, mass and lump (principal)
CPT/HCPCS: 36415; 74177; 82565; 84520; Q9963; Q9967

== ENCOUNTER → 2022-05-14 | Day surgery (SDC) | payer MEDICARE ==
[2022-05-12 12:26] LABS: BASOPHILS # (AUTO) 0.1 (0.0-0.1); BASOPHILS % 0.6 % (0.0-1.0); EOSINOPHILS # (AUTO) 0.2 (0.0-0.4); EOSINOPHILS % 1.4 % (0.0-6.0); HEMATOCRIT 43.5 % (34.2-44.1); HEMOGLOBIN 14.1 g/dL (12.0-16.0); LYMPHOCYTES # (AUTO) 4.1 (1.0-3.2); LYMPHOCYTES % 29.2 % (18.0-39.1); MEAN CORPUSCULAR HEMOGLOBIN 29.4 pg (28-32); MEAN CORPUSCULAR HGB CONC 32.4 g/dL (31-35); MEAN CORPUSCULAR VOLUME 90.6 fL (81-99); MONOCYTES # (AUTO) 0.8 (0.2-0.8); MONOCYTES % 5.8 % (4.4-11.3); NEUTROPHILS # (AUTO) 8.7 (2.1-6.9); NEUTROPHILS % 62.6 % (38.7-80.0); PLATELET COUNT 366 x10e3/uL (140-360)
[2022-05-12 12:49] LABS: ALBUMIN 3.9 g/dL (3.5-5.0); ALBUMIN/GLOBULIN RATIO 1.1 (0.8-2.0); ANION GAP 16.5 mmol/L (8-16); CALCIUM 9.3 mg/dL (8.4-10.2); CREATININE, SERUM 0.84 mg/dL (0.57-1.11); POTASSIUM 3.5 mmol/L (3.5-5.1)
[~2022-05-14] MED LIST changes: +BUPIVACAINE 0.25% 30ML SDV ONE; +CENTRUM ADULTS1 EACH PO; +DEXAMETHASONE SOD PHOS INJ 4 MG/ML SDV ONE; -DIATRIZOATE MEGL/DIATRIZOA SOD 30 ML BTL PO ONE; +EPHEDRINE SULFATE INJ 50 MG/ML VIAL ONE; +FENTANYL CITRATE/PF 100MCG/2 ML INJ ONE; -FLUOXETINE HCL40 MG; +FLUOXETINE HCL40 MG PO; +HYDROCODONE/APAP 7.5MG-325MG 1 EA TAB ONE; +HYDROMORPHONE 1MG/1ML INJ ONE; -IOPAMIDOL 370 MG/ML 100 ML INFUS..BTL INJ ONE; +LIDOCAINE HCL 2% LOCAL INJ 5 ML SDV VIAL INJ ONE; +ONDANSETRON HCL INJ 2MG/ML 2ML 2 MG/ML VIAL ONE; +POVIDONE IODINE 0.05% 0.05 % ML PO ONE; +PROPOFOL IV EMULSION 10 MG/ML 20 ML VIAL ONE; +ROCURONIUM BROMIDE 10 MG/ML 5ML VIAL IV ONE; +SEVOFLURANE INHAL SOLN 250 ML PEN BTL ONE; +SUGAMMADEX SODIUM 200 MG/2 ML VIAL IV ONE
[2022-05-14 13:25] VITALS: BP 139/66
== END | disposition home or self-care (01) ==
LOC: OR 09:10
PROVIDERS: ATTEND Surgery
DX: K80.10 Calculus of gallbladder with chronic cholecystitis without obstruction (principal); K66.0 Peritoneal adhesions (postprocedural) (postinfection); I25.10 Atherosclerotic heart disease of native coronary artery without angina pectoris; I10 Essential (primary) hypertension; E03.9 Hypothyroidism, unspecified; I69.351 Hemiplegia and hemiparesis following cerebral infarction affecting right dominant side; E66.9 Obesity, unspecified; Z01.810 Encounter for preprocedural cardiovascular examination; Z01.812 Encounter for preprocedural laboratory examination; Z01.818 Encounter for other preprocedural examination; Z79.02 Long term (current) use of antithrombotics/antiplatelets; Z79.899 Other long term (current) drug therapy
CPT/HCPCS: 36415; 47562; 71046; 80053; 85025; 88304; 93005; C1766; J1100; J1170; J2001; J2405; J2704; J3010